=== PATIENT | female | born 1975 | race Caucasian/White ===

== ENCOUNTER 2017-05-18 16:19 | Emergency (ER) | payer MEDICAID ==
[2017-05-19 09:00] LABS: ALB/GLOB RATIO 1.1 (1.0-2.1); ALBUMIN 3.5 g/dL (3.5-5.0); ALT/SGPT 24 U/L (9-52); AST/SGOT 19 U/L (14-36); B-TYPE NATRIURETIC PEPTIDE 253 pg/mL (0-450); BLOOD UREA NITROGEN 9 mg/dL (7-17); CALCIUM 8.6 mg/dl (8.6-10.4); GFR AFRICAN-AMERICAN > 60; GFR NON-AFRICAN AMERICAN > 60
[2017-05-19 09:01] LABS: MEAN CELL VOLUME 81.5 fL (81.0-99.0); MEAN CORPUSCULAR HEMOGLOBIN 26.6 pg (27.0-31.0); MEAN CORPUSCULAR HGB CONC 32.7 g/dL (33.0-37.0); MEAN PLATELET VOLUME 8.9 fL (7.2-11.7); RBC 4.12 Mil/uL (3.80-5.20); RED CELL DISTRIBUTION WIDTH 13.8 % (11.5-14.5); WHITE BLOOD COUNT 8.5 K/uL (4.8-10.8)
[2017-05-19 10:11] LABS: SQUAMOUS EPITHIAL 5 /hpf (0-5); URINE BACTERIA RARE (<OCC); URINE BILIRUBIN NEGATIVE (NEGATIVE); URINE BLOOD NEGATIVE (NEGATIVE); URINE CLARITY Clear (Clear); URINE COLOR Straw (YELLOW); URINE GLUCOSE (UA) NORMAL (Normal); URINE LEUKOCYTE ESTERASE NEG Leu/uL (Negative); URINE NITRATE NEGATIVE (NEGATIVE); URINE PROTEIN NEGATIVE (NEGATIVE); URINE UROBILINOGEN NORMAL mg/dL (0.2-1.0)
== END 2017-05-18 18:45 | disposition home or self-care (01) ==
LOC: C.ER 16:19
DX: R60.1 Generalized edema (principal)

== ENCOUNTER 2017-05-20 14:25 | Emergency (ER) | payer MEDICAID ==
[2017-05-20 15:51] LABS: BASO # 0.1 K/uL (0.0-0.2); BASO % 0.9 % (0.0-2.0); EOS # 0.2 K/uL (0.0-0.7); EOS % 2.3 % (0.0-4.0); HEMOGLOBIN 11.8 g/dL (11.0-16.0); LYMPH # 2.3 K/uL (1.0-4.3); LYMPH % 27.2 % (20.0-40.0); MEAN CELL VOLUME 81.1 fL (81.0-99.0); MEAN CORPUSCULAR HEMOGLOBIN 26.9 pg (27.0-31.0); MEAN CORPUSCULAR HGB CONC 33.2 g/dL (33.0-37.0); MEAN PLATELET VOLUME 8.5 fL (7.2-11.7); MONO # 0.5 K/uL (0.0-0.8); MONO % 5.9 % (0.0-10.0); NEUT # 5.3 K/uL (1.8-7.0); NEUT % 63.7 % (50.0-75.0); RBC 4.37 Mil/uL (3.80-5.20); RED CELL DISTRIBUTION WIDTH 13.6 % (11.5-14.5); WHITE BLOOD COUNT 8.3 K/uL (4.8-10.8)
--- NOTE | 2017-05-20 16:14 | RAD ---
PROCEDURE: CHEST RADIOGRAPH, 1 VIEW HISTORY: Chest pain COMPARISON: None available. FINDINGS: LUNGS: The lungs are well inflated and clear. PLEURA: No pneumothorax or pleural fluid seen. CARDIOVASCULAR: Normal. OSSEOUS STRUCTURES: No significant abnormalities. VISUALIZED UPPER ABDOMEN: Normal. OTHER FINDINGS: None. IMPRESSION: No active pulmonary disease.
--- NOTE | 2017-05-20 16:22 | C.PDOC ---
History Of Present Illness 41 y/o female presents to the ED for evaluation of cough that is associated with chest pain which began around 3 days ago. Patient was seen in ED recently for same complaints, underwent a full workup which produced negative results, and was discharged home with instructions to follow up with her PMD. Patient states her symptoms have worsened since onset, and presents for further evaluation. Patient denies fever, chills, shortness of breath, hemoptysis, vomiting, diarrhea, or recent travel. Time Seen by Provider: 05/20/17 14:56 Chief Complaint (Nursing): Chest Pain History Per: Patient History/Exam Limitations: no limitations Onset/Duration Of Symptoms: Days (3), Worse Since Current Symptoms Are (Timing): Still Present Quality: "Pain" Associated Symptoms: denies: Nausea Additional History Per: Patient Past Medical History Reviewed: Historical Data, Nursing Documentation, Vital Signs Vital Signs: Last Vital Signs Temp 98.2 F 05/20/17 18:00 Pulse 64 05/20/17 18:00 Resp 14 05/20/17 18:00 BP 120/68 05/20/17 18:00 Pulse Ox 99 05/20/17 18:44 - Medical History PMH: No Chronic Diseases Surgical History: No Surg Hx Family History: States: Unknown Family Hx - Social History Hx Alcohol Use: No Hx Substance Use: No - Immunization History Hx Tetanus Toxoid Vaccination: No Hx Influenza Vaccination: No Hx Pneumococcal Vaccination: No Review Of Systems Constitutional: Negative for: Fever, Chills Cardiovascular: Positive for: Chest Pain Respiratory: Positive for: Cough. Negative for: Shortness of Breath Gastrointestinal: Negative for: Vomiting, Diarrhea Physical Exam - Physical Exam Appears: Non-toxic, No Acute Distress Skin: Normal Color, Warm, Dry Head: Atraumatic Eye(s): bilateral: Normal Inspection Oral Mucosa: Moist Neck: Supple Chest: Symmetrical, No Deformity, No Tenderness Cardiovascular: Rhythm Regular, No Murmur Respiratory: Normal Breath Sounds, No Rales, No Rhonchi, No Wheezing Back: Normal Inspection, No Vertebral Tenderness, No Paraspinal Tenderness Extremity: Normal ROM, No Tenderness, Pedal Edema (trace), Capillary Refill ( less than 2 seconds ), No Deformity Pulses: Left Dorsalis Pedis: Normal, Right Dorsalis Pedis: Normal Neurological/Psych: Oriented x3, Normal Speech, Normal Cognition Gait: Steady ED Course And Treatment - Laboratory Results Result Diagrams: 05/20/17 15:45 05/20/17 15:45 ECG: Interpreted By Me ECG Rhythm: Sinus Rhythm ECG Interpretation: Normal Rate From EC O2 Sat by Pulse Oximetry: 99 (on RA) Pulse Ox Interpretation: Normal - Other Rad CXR X-Ray: Interpreted by Me, Viewed By Me, Read By Radiologist Interpretation: Accession No. : [id number]. Patient Name / ID : HENRIK Wagner / [id number]. Exam Date : 05/20/2017 15:41:04 ( Approved ). Study Comment : Sex / Age : F / 41Y. Creator : BILL BEAUCHAMP MD. Dictator : BILL BEAUCHAMP MD. Refuge Worker : Water Control Station Engineer : BILL BEAUCHAMP MD. Approver2 : Report Date : 05/20/2017 16:12:47. My Comment : . PROCEDURE: CHEST RADIOGRAPH, 1 VIEW. HISTORY: Chest pain. COMPARISON: None available. FINDINGS: LUNGS: The lungs are well inflated and clear. PLEURA: No pneumothorax or pleural fluid seen. CARDIOVASCULAR: Normal. OSSEOUS STRUCTURES: No significant abnormalities. VISUALIZED UPPER ABDOMEN: Normal. OTHER FINDINGS: None. IMPRESSION: No active pulmonary disease. Medical Decision Making Medical Decision Making: Plan: * labs * CXR * EKG * Solu-Medrol PO * reassess and disposition Progress: CXR, EKG, and labs ordered and reviewed. Patient received Solu-Medrol IV. On re-exam, the patient reports improvement of symptoms. A&O x 3, Ambulatory in the ED with steady gait, normal speech. Lungs are CTA, heart is RRR, abdomen is soft, non-tender and tolerating PO well. Follow up with the medical doctor/ medical clinic within 1-2 days. Return if worsened. Disposition - Disposition Referrals: Maria D Felix MD [Medical Doctor] - Disposition: HOME/ ROUTINE Disposition Time: 17:44 Condition: GOOD Additional Instructions: Follow up with the medical doctor within 1-2 days. Return if worsened. Prescriptions: Ibuprofen [Motrin] 600 mg PO TID #21 tab predniSONE [Prednisone] 10 mg PO BID #10 tab Instructions: Chest Pain (ED) Forms: Work Excuse - Clinical Impression Clinical Impression: Chest pain, Bronchitis - PA / PHOTOGRAPHIC AIDE / Resident Statement MD/DO has reviewed & agrees with the documentation as recorded. - Scribe Statement The provider has reviewed the documentation as recorded by the Scribe (Marva Bustillos) All medical record entries made by the Scribe were at my direction and personally dictated by me. I have reviewed the chart and agree that the record accurately reflects my personal performance of the history, physical exam, medical decision making, and the department course for this patient. I have also personally directed, reviewed, and agree with the discharge instructions and disposition.
[2017-05-20 16:24] LABS: ALBUMIN 3.8 g/dL (3.5-5.0)
[2017-05-20 16:26] LABS: GFR AFRICAN-AMERICAN > 60; GFR NON-AFRICAN AMERICAN > 60
[2017-05-20 16:27] LABS: ALB/GLOB RATIO 1.1 (1.0-2.1); ALT/SGPT 23 U/L (9-52); AST/SGOT 21 U/L (14-36); BLOOD UREA NITROGEN 11 mg/dL (7-17)
[2017-05-20 16:28] LABS: CALCIUM 8.7 mg/dl (8.6-10.4)
[2017-05-20 16:39] LABS: B-TYPE NATRIURETIC PEPTIDE 149 pg/mL (0-450)
[2017-05-20 18:09] VITALS: BP 120/68; PULSE 64; RESP 14; TEMP 98.2
[2017-05-20 18:37] VITALS: O2SAT 99
--- NOTE | 2017-05-25 19:17 | CARD ---
APPROVED REPORT EKG Measurement Heart [id number] <Conclusion> Normal sinus rhythm Normal ECG
== END 2017-05-20 18:07 | disposition home or self-care (01) ==
LOC: C.ER 14:25
DX: R07.9 Chest pain, unspecified (principal); J40 Bronchitis, not specified as acute or chronic
CPT/HCPCS: 71010; 80053; 83880; 84484; 85025; 96374; 99285; J2930

== ENCOUNTER 2017-07-13 09:13 | Emergency (ER) | payer MEDICAID ==
[2017-07-13 09:20] VITALS: BP 110/77; PULSE 82; RESP 19; TEMP 97.8; O2SAT 100
--- NOTE | 2017-07-13 09:32 | C.PDOC ---
History Of Present Illness 41 y/o female patient presents to the ED with complaints of diffuse itchy rash that started this morning.The patient denies contact with known allergens, shortness of breath,fever, chills,swelling of lips/tongue, sensation of throat closing up. Time Seen by Provider: 07/13/17 09:21 Chief Complaint (Nursing): Abnormal Skin Integrity History Per: Patient History/Exam Limitations: no limitations Onset/Duration Of Symptoms: Hrs Current Symptoms Are (Timing): Still Present Quality Of Symptoms: Itching Additional History Per: Patient Past Medical History Reviewed: Historical Data, Nursing Documentation, Vital Signs Vital Signs: Last Vital Signs Temp 97.8 F 07/13/17 09:16 Pulse 82 07/13/17 09:16 Resp 19 07/13/17 09:16 BP 110/77 07/13/17 09:16 Pulse Ox 100 07/13/17 12:05 Surgical History: No Surg Hx Family History: States: No Known Family Hx - Social History Hx Alcohol Use: No Hx Substance Use: No - Immunization History Hx Tetanus Toxoid Vaccination: No Hx Influenza Vaccination: No Hx Pneumococcal Vaccination: No Review Of Systems Except As Marked, All Systems Reviewed And Found Negative. Constitutional: Negative for: Fever, Chills ENT: Negative for: Mouth Pain, Mouth Swelling, Throat Swelling Respiratory: Negative for: Shortness of Breath Skin: Positive for: Rash Physical Exam - Physical Exam Appears: Well, Non-toxic, No Acute Distress, Other (uncomfortable appearing, scratching at her legs ) Skin: Warm, Dry, Rash (diffuse urticial rash to bilateral upper and lower extermemites. nonvesicular) Head: Normacephalic Nose: Normal Oral Mucosa: Moist, No Drooling Tongue: No Normal Appearing, No Swelling, No Erythema Lips: Normal Appearing, No Swelling Throat: Normal, No Erythema, No Exudate, No Drooling Neck: Normal Cardiovascular: Rhythm Regular Respiratory: Normal Breath Sounds, No Accessory Muscle Use, No Rales, No Rhonchi , No Wheezing, Other (speaking in full sentences ) Neurological/Psych: Oriented x3 ED Course And Treatment O2 Sat by Pulse Oximetry: 100 (RA) Pulse Ox Interpretation: Normal Progress Note: Patient was given PO benadryl, pepcid, and prednisone. Reevaluation Time: 09:40 Reassessment Condition: Improved (On reassessment, patient's symptoms are improving. She has no SOB, tongue/lip swelling, and is well appearing with normal vitals. Rxs given for prednisone, benadryl, and patient instructed to follow up with PMD in 1-2 days. She understands she should return to ED if symptoms worsen.) Disposition Counseled Patient/Family Regarding: Diagnosis, Need For Followup, Rx Given - Disposition Referrals: Barb Travis MD [Medical Doctor] - Disposition: HOME/ ROUTINE Disposition Time: 09:40 Condition: STABLE Additional Instructions: FOLLOW UP WITH YOUR DOCTOR IN 1-2 DAYS USE MEDICATIONS DIRECTED RETURN TO ER IF SYMPTOMS WORSEN Prescriptions: DiphenhydrAMINE [Benadryl] 25 mg PO Q6 PRN #15 cap PRN Reason: Itching / Pruritus predniSONE [predniSONE Tab] 40 mg PO DAILY #8 tab Instructions: Urticaria (ED) Forms: [employer] (Swedish), Work Excuse Print Language: CITIZEN OF [place] - Clinical Impression Clinical Impression: Urticaria - Scribe Statement The provider has reviewed the documentation as recorded by the [employer] under Marva Bustillos Provider Attestation: All medical record entries made by the Bentley were at my direction and personally dictated by me. I have reviewed the chart and agree that the record accurately reflects my personal performance of the history, physical exam, medical decision making, and the department course for this patient. I have also personally directed, reviewed, and agree with the discharge instructions and disposition.
== END 2017-07-13 09:46 | disposition home or self-care (01) ==
LOC: C.ER 09:13
DX: L50.9 Urticaria, unspecified (principal)

== ENCOUNTER 2018-07-02 08:59 | Day surgery (SDC) | payer MEDICAID ==
[2018-07-01 14:05] VITALS: BMI 53.0
[2018-07-02] MEDS ORDERED: Propofol 10 mg/ml Inj (20 ML) ONE (11:10)
[2018-07-02] MEDS ORDERED: Lactated Ringer's 1,000 ML IV ONE (11:10)
[2018-07-02 12:06] VITALS: PULSE 63; O2SAT 99
[2018-07-02 13:21] VITALS: BP 115/74; RESP 16; TEMP 97
== END 2018-07-02 12:30 | disposition home or self-care (01) ==
LOC: C.ENDO 08:59
PROVIDERS: ATTEND Internal Medicine Gastroenterology
DX: K21.9 Gastro-esophageal reflux disease without esophagitis (principal)
CPT/HCPCS: 43239; 84703; 88305; J2001; J2704; J7120